=== PATIENT | female | born 1930 | race Caucasian/White ===

== ENCOUNTER → 2016-06-08 | Outpatient (CLI) | payer MEDICARE, OTHER ==
[2016-06-08 11:09] LABS: ABSOLUTE EOSINOPHILS # (AUTO) 0.1 10^3/uL (0.0-0.6); ABSOLUTE LYMPHOCYTES (AUTO) 1.2 10^3/uL (0.5-4.7); ABSOLUTE MONOCYTES (AUTO) 0.6 10^3/uL (0.1-1.4); ABSOLUTE NEUT (AUTO) 2.7 10^3/uL (1.7-8.2); BASOPHILS % (AUTO) 0.5 % (0-2); EOSINOPHILS % (AUTO) 3.2 % (0-6); HEMATOCRIT 40.4 % (36.0-47.0); HEMOGLOBIN 13.1 g/dL (12.0-15.5); HGB HCT DIFFERENCE -1.1; LYMPHOCYTES % (AUTO) 25.3 % (13-45); MEAN CORPUSCULAR HEMOGLOBIN 28.8 pg (27.0-33.4); MEAN CORPUSCULAR HGB CONC 32.5 g/dL (32.0-36.0); MEAN CORPUSCULAR VOLUME 89 fl (80-97); MONOCYTES % (AUTO) 12.4 % (3-13); RED BLOOD COUNT 4.57 10^6/uL (3.72-5.28); SEGMENTED NEUTROPHILS % (AUTO) 58.6 % (42-78); WHITE BLOOD COUNT 4.7 10^3/uL (4.0-10.5)
[2016-06-08 11:16] LABS: HEMATOCRIT 40.4 % (36.0-47.0); HEMOGLOBIN 13.1 g/dL (12.0-15.5); HGB HCT DIFFERENCE -1.1; MEAN CORPUSCULAR HEMOGLOBIN 28.8 pg (27.0-33.4); MEAN CORPUSCULAR HGB CONC 32.5 g/dL (32.0-36.0); MEAN CORPUSCULAR VOLUME 89 fl (80-97); RED BLOOD COUNT 4.57 10^6/uL (3.72-5.28); WHITE BLOOD COUNT 4.7 10^3/uL (4.0-10.5)
[2016-06-08 11:32] LABS: ALANINE AMINOTRANSFERASE 38 U/L (9-52); ALBUMIN 3.9 g/dL (3.5-5.0); ALKALINE PHOSPHATASE 136 U/L (38-126); ANION GAP 12 (5-19); ASPARTATE AMINO TRANSFERASE 41 U/L (14-36); BILIRUBIN,TOTAL 0.7 mg/dL (0.2-1.3); BLOOD UREA NITROGEN 66 mg/dL (7-20); CALCIUM 9.6 mg/dL (8.4-10.2); CARBON DIOXIDE 22 mmol/L (22-30); CHLORIDE 104 mmol/L (98-107); CHOLESTEROL 123.66 mg/dL (0-200); CREATININE RESULT 1.52 mg/dL (0.52-1.25); Direct HDL 51 mg/dL (>40); GLUCOSE 137 mg/dL (75-110); MAGNESIUM 2.5 mg/dL (1.6-2.3); PHOSPHORUS 4.7 mg/dL (2.5-4.5); POTASSIUM 5.2 mmol/L (3.6-5.0); SODIUM 138.1 mmol/L (137-145); TRIGLYCERIDES 108 mg/dL (<150)
[2016-06-08 11:43] LABS: DIRECT LDL 34 mg/dL (<100)
[2016-06-08 11:47] LABS: BLOOD UREA NITROGEN 66 mg/dL (7-20); CALCIUM 9.6 mg/dL (8.4-10.2); CREATININE RESULT 1.52 mg/dL (0.52-1.25); GLUCOSE 137 mg/dL (75-110)
[2016-06-08 11:48] LABS: ANION GAP 12 (5-19); CARBON DIOXIDE 22 mmol/L (22-30); CHLORIDE 104 mmol/L (98-107); POTASSIUM 5.2 mmol/L (3.6-5.0); SODIUM 138.1 mmol/L (137-145)
== END ==
LOC: OD 09:52
PROVIDERS: ATTEND Internal Medicine Clinical Cardiac Electrophysiology
DX: Z01.812 Encounter for preprocedural laboratory examination (principal); D89.9 Disorder involving the immune mechanism, unspecified; Z94.0 Kidney transplant status; Z79.899 Other long term (current) drug therapy; E55.9 Vitamin D deficiency, unspecified; Z11.4 Encounter for screening for human immunodeficiency virus [HIV]; N39.0 Urinary tract infection, site not specified; I65.23 Occlusion and stenosis of bilateral carotid arteries; I10 Essential (primary) hypertension; I50.32 Chronic diastolic (congestive) heart failure; I48.0 Paroxysmal atrial fibrillation; I48.92 Unspecified atrial flutter; E78.00 Pure hypercholesterolemia, unspecified
CPT/HCPCS: 36415; 80048; 80197; 82040; 82247; 82465; 82977; 83718; 83721; 83735; 84075; 84100; 84450; 84460; 84478; 85025; 85027; 85610

== ENCOUNTER → 2016-06-28 | Outpatient (CLI) | payer MEDICARE, OTHER ==
[2016-06-28 10:58] LABS: HEMATOCRIT 42.1 % (36.0-47.0); HEMOGLOBIN 13.8 g/dL (12.0-15.5); HGB HCT DIFFERENCE -0.7; MEAN CORPUSCULAR HEMOGLOBIN 29.1 pg (27.0-33.4); MEAN CORPUSCULAR HGB CONC 32.8 g/dL (32.0-36.0); MEAN CORPUSCULAR VOLUME 89 fl (80-97); RED BLOOD COUNT 4.76 10^6/uL (3.72-5.28); RED CELL DISTRIBUTION WIDTH 15.3 % (11.5-14.0); WHITE BLOOD COUNT 5.4 10^3/uL (4.0-10.5)
[2016-06-28 11:06] LABS: HEMATOCRIT 42.1 % (36.0-47.0); HEMOGLOBIN 13.8 g/dL (12.0-15.5); HGB HCT DIFFERENCE -0.7; MEAN CORPUSCULAR HEMOGLOBIN 29.1 pg (27.0-33.4); MEAN CORPUSCULAR HGB CONC 32.8 g/dL (32.0-36.0); MEAN CORPUSCULAR VOLUME 89 fl (80-97); RED BLOOD COUNT 4.76 10^6/uL (3.72-5.28); RED CELL DISTRIBUTION WIDTH 15.3 % (11.5-14.0); WHITE BLOOD COUNT 5.4 10^3/uL (4.0-10.5)
[2016-06-28 11:29] LABS: BASOPHILS % (MANUAL) 0 % (0-2); EOSINOPHILS % (MANUAL) 2 % (0-6); LYMPHOCYTES % (MANUAL) 13 % (13-45); TOTAL CELLS COUNTED 100
[2016-06-28 11:30] LABS: ANISOCYTOSIS 1+; OVALOCYTES 1+; POIKILOCYTOSIS 1+
[2016-06-28 14:16] LABS: ANION GAP 13 (5-19); BLOOD UREA NITROGEN 68 mg/dL (7-20); CALCIUM 9.2 mg/dL (8.4-10.2); CARBON DIOXIDE 25 mmol/L (22-30); CHLORIDE 99 mmol/L (98-107); CREATININE RESULT 1.43 mg/dL (0.52-1.25); GLUCOSE 288 mg/dL (75-110); MAGNESIUM 2.4 mg/dL (1.6-2.3); POTASSIUM 5.4 mmol/L (3.6-5.0); SODIUM 137.1 mmol/L (137-145)
[2016-06-28 14:20] LABS: ANION GAP 13 (5-19); BLOOD UREA NITROGEN 68 mg/dL (7-20); CALCIUM 9.2 mg/dL (8.4-10.2); CARBON DIOXIDE 25 mmol/L (22-30); CHLORIDE 99 mmol/L (98-107); CREATININE RESULT 1.43 mg/dL (0.52-1.25); GLUCOSE 288 mg/dL (75-110); POTASSIUM 5.4 mmol/L (3.6-5.0); SODIUM 137.1 mmol/L (137-145)
[2016-06-28 14:21] LABS: MAGNESIUM 2.4 mg/dL (1.6-2.3)
[2016-06-29 13:16] LABS: B-TYPE NATRIURETIC PEPTIDE 478.4 pg/mL (0.0-100.0)
[2016-07-01 07:07] LABS: TACROLIMUS (FK506) 3.4 ng/mL (2.0-20.0)
== END ==
LOC: OD 09:27
PROVIDERS: ATTEND Internal Medicine Cardiovascular Disease
DX: Z94.0 Kidney transplant status (principal); Z79.899 Other long term (current) drug therapy; D89.9 Disorder involving the immune mechanism, unspecified; E55.9 Vitamin D deficiency, unspecified; Z11.4 Encounter for screening for human immunodeficiency virus [HIV]; E11.29 Type 2 diabetes mellitus with other diabetic kidney complication; Z78.9 Other specified health status; N39.0 Urinary tract infection, site not specified; D63.1 Anemia in chronic kidney disease; E83.30 Disorder of phosphorus metabolism, unspecified; Z09 Encounter for follow-up examination after completed treatment for conditions other than malignant neoplasm; T86.10 Unspecified complication of kidney transplant; B25.9 Cytomegaloviral disease, unspecified; Z94.83 Pancreas transplant status
CPT/HCPCS: 36415; 80048; 80197; 83735; 83880; 84100; 85025; 85027